=== PATIENT | female | born 1995 | race Caucasian/White ===

== ENCOUNTER 2017-04-23 13:10 | Outpatient (CLI) | payer OTHER, MEDICAID ==
--- NOTE | 2017-04-23 15:29 | ULT ---
ULTRASOUND OB COMPLETE STANDARD: HISTORY: Anatomy scan. COMPARISON: None. TECHNIQUE: Real-time, lopez scale, color Doppler, and spectral analysis of the pelvis was performed. A transabdominal approach was used. FINDINGS: Single viable intrauterine with average ultrasound age 17 weeks 3 days with estimated date of delivery 09/28/17. Estimated weight is 7 ounces, 27th percentile. The heart rate documented at 152 b.p.m. The placenta is posterior. Amniotic fluid is adequate . presentation is breech. ANATOMY: The head, cerebellum, cisterna magna, lateral ventricles, 4-chamber heart, stomach, kidneys, cord ins ertion, bladder, cervical, thoracic and lumbosacral spine are all number. Posterior fossa, nose, and lips are all normal. IMPRESSION: Single viable intrauterine with avid ultrasound age 17 weeks 2 days, estimated date of deli very 09/28/17. Estimated weight is 7 ounces, 27th percentile. Normal anatomy. POS: [facility]
== END 2017-04-23 13:11 | disposition home or self-care (01) ==
LOC: ULT 13:10
PROVIDERS: ATTEND Family Medicine
DX: Z34.82 Encounter for supervision of other normal pregnancy, second trimester (principal); Z3A.17 17 weeks gestation of pregnancy
CPT/HCPCS: 36415; 76805; 82105; 82677; 84702; 86336

== ENCOUNTER 2017-09-18 15:21 | Inpatient (IN) | payer OTHER ==
[2017-09-18 17:31] VITALS: BMI 33.8
--- NOTE | 2017-09-18 17:40 | PDOC.LDHP ---
Labor and Delivery H&P HPI: Patient of Dr Aliyah Lion here in L&D for contractions and "losing mucous plug" EGA: 38 weeks 6 days HPI: 22 yo at 38 weeks 6 days with regular contractions since this AM. Denies other issues. She is PCN allergic and record states VANCO for GBS. Review of Systems: Complete ROS performed and negative as per HPI Current gestational age (weeks): 38 (6 days) Due date: 10/01/17 Grav: 3 Para: 1 OB History Details: x 1 at term Current complications: none Abnormal US findings: No Current medications: pre-ángel vitamins Previous surgical history: none Allergies/Adverse Reactions: Allergies Allergy/AdvReac Type Severity Reaction Status Date / Time Penicillins Allergy Severe Anaphylaxis Verified 09/18/15 20:07 Social history: none - Physical Exam Vital signs reviewed and normal: yes General: NAD Heart: RRR Lungs: CTAB Abdomen: gravid (Efw about 7 Lbl) Extremeties: no edema FHT: category 1 [place] contractions every: every 5-10 - Vaginal Exam cm dilated: 4 Effacement: 90% Station: 0 - Assessment L&D Assessment: term patient in labor - Plan Plan: admit to L&D (We will notify Dr Aliyah lion of her patient's arrival.), GBS antibiotic prophylaxis (Vanco as per notes), informed consent obtained, anesthesia consult for pain management
[2017-09-18] MEDS ORDERED: Promethazine HCl 25 MG/ML VIAL IM PRN (17:42)
[2017-09-18] MEDS ORDERED: Butorphanol Tartrate 1 MG/ML VIAL SLOW IVP PRN (17:42)
[2017-09-18] MEDS ORDERED: NS / Oxytocin 40 units/1000ml 1,000 ML IV PRN (17:42)
[2017-09-18] MEDS ORDERED: Ibuprofen 800 MG TAB PO PRN (17:42)
[2017-09-18] MEDS ORDERED: Lidocaine 1% (PF) 30 ML VIAL SC PRN (17:42)
[2017-09-18] MEDS ORDERED: HYDROcodone/Acetaminophen 5/325 mg Tablet PO PRN ×2 (17:42)
[2017-09-18] MEDS ORDERED: Vancomycin HCl 1 GM in Premix Bag 1 BAG IVPB SCH (18:00)
[2017-09-18] MEDS: Lactated Ringer's 1,000 ML IV SCH (18:08)
--- NOTE | 2017-09-18 18:30 | PDOC.EVN ---
Event Note - Event Note Event Note: Addendum to H&P: record states HEP C positive. We will not perform AROM, and no FSE if possible. Will notify Pedi team. Order maternal viral load for information.
[2017-09-18 18:36] LABS: Hemoglobin 13.4 g/dL (12.0-16.0); Mean Corpuscular HGB CONC 35.5 g/dL (32.0-36.0); Mean Corpuscular Hemoglobin 32.7 pg (27.0-31.0); Mean Corpuscular Volume 92.3 fL (78.0-98.0); Mean Platelet Volume 7.9 fL (7.4-10.4); Platelet Count 257 thou/uL (130-400); RBC Distribution Width 12.2 % (11.5-14.5); Red Blood Cell (RBC) Count 4.09 mill/uL (4.20-5.40); White Blood Cell (WBC) Count 11.9 thou/uL (4.8-10.8)
[2017-09-18 19:11] LABS: HBSAg Index 0.22 S/CO (0-0.99); HIV (1/2) Antibody/Antigen Non-Reactive (NonReactive); HIV 1/2 INDEX 0.09 S/CO (<1.00); Hep B Surf Ag Non-Reactive S/CO (NonReactive)
[2017-09-18 19:16] LABS: Syphilis Antibody Nonreactive (Nonreactive); Syphilis Antibody Index 0.14 S/CO (<1.00 Non-Reactive)
[2017-09-19] MEDS ORDERED: Misoprostol 200 MCG TAB ONE (00:03)
[2017-09-19] MEDS ORDERED: Acetaminophen/Codeine 30-300mg Tablet PO PRN (03:00)
[2017-09-19] MEDS ORDERED: Lanolin Ointment 7 GM TUBE TOP PRN (03:00)
[2017-09-19] MEDS ORDERED: Preparation H Ointment 28 GM TUBE PR PRN (03:00)
[2017-09-19] MEDS ORDERED: Ondansetron HCl/PF 4 MG/2 ML Vial IVP PRN (03:00)
[2017-09-19] MEDS ORDERED: Milk Of Magnesia 30 ML UDCUP PO PRN (03:00)
[2017-09-19] MEDS ORDERED: Bisacodyl 10 MG SUPP PR PRN (03:00)
[2017-09-19] MEDS ORDERED: Benzocaine/Menthol 20-0.5% 60 ML CAN TOP PRN (03:00)
[2017-09-19] MEDS ORDERED: diphenhydrAMINE 25 MG CAP PO PRN (03:00)
[2017-09-19] MEDS ORDERED: NS / Oxytocin 40 units/1000ml 1,000 ML IV SCH (03:00)
[2017-09-19] MEDS: Ibuprofen 800 MG TAB PO SCH ×3 (05:15→22:16)
[2017-09-19] MEDS: Prenatal Vitamin 1 TAB PO SCH (09:35)
[2017-09-19] MEDS: Docusate Calcium (SURFAK) 240 MG CAP PO SCH ×2 (09:35→22:17)
[2017-09-19] MEDS: Ferrous Sulfate 325 MG TAB PO SCH ×2 (09:36→18:55)
[2017-09-19] MEDS: Lactated Ringer's 1,000 ML IV SCH (18:55)
[2017-09-20] MEDS: Ibuprofen 800 MG TAB PO SCH ×2 (05:41→17:09)
[2017-09-20] MEDS: Prenatal Vitamin 1 TAB PO SCH (08:50)
[2017-09-20] MEDS: Docusate Calcium (SURFAK) 240 MG CAP PO SCH (08:50)
[2017-09-20] MEDS: Ferrous Sulfate 325 MG TAB PO SCH (08:53)
[2017-09-20 09:01] VITALS: BP 114/77; TEMP 97.5
[2017-09-20] MEDS: HYDROcodone/Acetaminophen 5/325 mg Tablet PO PRN ×2 (09:02→17:11)
[2017-09-20] MEDS ORDERED: Sodium Chloride 0.9% 10 ML ONE (12:40)
[2017-09-22 14:18] LABS: Hep C PCR-Quant 251000 IU/mL (.)
== END 2017-09-20 18:34 | disposition home or self-care (01) | DRG 774 ==
LOC: L&D/OP 15:21 → L&D 18:55 → 3SW 09-19 02:54
PROVIDERS: ADMIT Family Medicine; ATTEND Obstetrics & Gynecology
PROC: 10E0XZZ Delivery of Products of Conception, External Approach (ICD-10-PCS; principal; 2017-09-18)
PROC: 10907ZC Drainage of Amniotic Fluid, Therapeutic from Products of Conception, Via Natural or Artificial Opening (ICD-10-PCS; 2017-09-18)
DX: O99.344 Other mental disorders complicating childbirth (principal); O98.42 Viral hepatitis complicating childbirth; O72.1 Other immediate postpartum hemorrhage; O77.0 Labor and delivery complicated by meconium in amniotic fluid; B19.20 Unspecified viral hepatitis C without hepatic coma; O99.824 Streptococcus B carrier state complicating childbirth; Z3A.38 38 weeks gestation of pregnancy; Z37.0 Single live birth; Z79.899 Other long term (current) drug therapy; Z88.0 Allergy status to penicillin
CPT/HCPCS: 36415; 85014; 85018; 85027; 86780; 86850; 86900; 86901; 87340; 87389; 87522; 99285; A4216; J2001; J3370

== ENCOUNTER 2018-10-07 13:56 | Emergency (ER) | payer OTHER, SELFPAY | END 2018-10-07 15:24 | disposition short-term general hospital (02) | LOC: ERS 13:56 | DX: F15.129 Other stimulant abuse with intoxication, unspecified (principal); F41.9 Anxiety disorder, unspecified; F90.9 Attention-deficit hyperactivity disorder, unspecified type; F98.8 Other specified behavioral and emotional disorders with onset usually occurring in childhood and adolescence; F42.9 Obsessive-compulsive disorder, unspecified; F17.210 Nicotine dependence, cigarettes, uncomplicated | CPT/HCPCS: 99284 ==

== ENCOUNTER 2019-01-19 10:20 | Outpatient (CLI) | payer OTHER ==
--- NOTE | 2019-01-19 11:11 | ULT ---
Exam: Pelvic ultrasound HISTORY: Pelvic pain COMPARISON: None TECHNIQUE: Multiple grayscale and color Doppler images were obtained in a transabdominal and transvag inal pelvic ultrasound. Spectral analysis of the Doppler waveforms of the ovaries were performed. FINDINGS: CERVIX: Grossly within normal limits where visualized. UTERUS: Normal in size without focal abnormality. ENDOMETRIAL STRIPE: 16 mm which is thickened. No fluid or fluid collection is seen in the endometrial canal. Small amount of free fluid is present. RIGHT OVARY: Normal flow, without focal mass. LEFT OVARY: Normal flow, without focal mass. IMPRESSION: 1. Thickened endometrium which measures 16 mm. No fluid or fluid collection is seen in the endometria l canal. 2. Small amount of free fluid in the pelvis.
== END 2019-01-19 10:21 | disposition home or self-care (01) ==
LOC: SCSULT 10:20
PROVIDERS: ATTEND Family Medicine
DX: N91.2 Amenorrhea, unspecified (principal); R93.89 Abnormal findings on diagnostic imaging of other specified body structures
CPT/HCPCS: 76856

== ENCOUNTER 2019-01-25 08:27 | Outpatient (CLI) | payer OTHER ==
--- NOTE | 2019-01-25 09:26 | MRI ---
MRI BRAIN WITHOUT CONTRAST: HISTORY: Tremor, headache, opiate withdrawal FINDINGS: No restricted diffusion is seen.The ventricular size is appropriate and the basilar cisterns are virk nt. No evidence of acute infarct, hemorrhage, midline shift or abnormal extra-axial fluid collections is seen. The visualized paranasal sinuses and mastoid air cells are well-aerated. No tons illar herniation is seen. IMPRESSION: No evidence of acute intracranial process.
== END 2019-01-25 08:28 | disposition home or self-care (01) ==
LOC: TBSIIMAG 08:27
PROVIDERS: ATTEND Family Medicine
DX: F11.23 Opioid dependence with withdrawal (principal); R25.1 Tremor, unspecified; R51 Headache
CPT/HCPCS: 70551

== ENCOUNTER 2019-05-13 19:38 | Emergency (ER) | payer OTHER ==
[2019-05-13] MEDS ORDERED: Lorazepam 2 MG/ML VIAL ONE (20:08)
[2019-05-13] MEDS ORDERED: Haloperidol Lactate 5 MG/ML VIAL ONE (20:09)
[2019-05-13 20:32] LABS: BHCG - Serum Negative (NEGATIVE)
[2019-05-13 20:33] LABS: Pregs Control Background? CLEAR/WHITE (CLR/WHITE); Pregs Control Bar Appear? YES (CONTROL BAR)
--- NOTE | 2019-05-13 20:38 | RAD ---
PORTABLE CHEST: 05/13/19 HISTORY: Cough and fever. The lung richardson appear clear. No infiltrate identified. Heart and mediastinum unremarkable. IMPRESSION: No acute findings. POS: [facility]
[2019-05-13 20:40] LABS: ALT (SGPT) 13 U/L (8-55); AST (SGOT) 15 U/L (5-34); Alkaline Phosphatase 87 U/L (40-110); Anion Gap 12 mmol/L (10-20); BUN (Urea Nitrogen) 13 mg/dL (7.0-18.7); Bilirubin, Total 0.3 mg/dL (0.2-1.2); CK (CPK) 153 U/L (29-168); Calc. Creatinine Clearance 0 mL/min (70-130); Calcium 9.3 mg/dL (7.8-10.44); Carbon Dioxide 27 mmol/L (22-29); Chloride 104 mmol/L (98-107); Estimated GFR-MDRD 72; Globulin 3.3 g/dL (2.4-3.5); Glucose 104 mg/dL (70-105); Potassium 3.8 mmol/L (3.5-5.1); Protein, Total 7.3 g/dL (6.0-8.3); Sodium 139 mmol/L (136-145)
[2019-05-13 20:41] LABS: Acetaminophen Less than 6.0 mcg/mL (10.0-30.0); Alcohol Less than 10 mg/dL (Less than 10); Salicylate Less than 8.0 mg/dL (15.0-30.0)
[2019-05-13 20:57] LABS: #Basophils 0.1 thou/uL (0.0-0.2); #Eosinphils 0.1 thou/uL (0.0-0.7); #Lymphocytes 3.7 thou/uL (1.20-3.40); #Monocytes 0.7 thou/uL (0.11-0.59); #Neutrophils 7.3 thou/uL (1.40-6.50); %Basophils 0.7 % (0.0-1.0); %Lymphocytes 31.2 % (21.0-51.0); %Monocytes 5.7 % (0.0-10.0); %Neutrophils 61.5 % (42.0-75.0); Hemoglobin 11.2 g/dL (12.0-16.0); Mean Corpuscular HGB CONC 33.4 g/dL (32.0-36.0); Mean Corpuscular Volume 89.8 fL (78.0-98.0); Mean Platelet Volume 6.6 fL (7.4-10.4); Platelet Count 406 thou/uL (130-400); Red Blood Cell (RBC) Count 3.74 mill/uL (4.20-5.40); White Blood Cell (WBC) Count 11.9 thou/uL (4.8-10.8)
[2019-05-13 21:59] LABS: Bilirubin Negative (Negative); Blood, Urine 2+ (Negative); Clarity Clear (Clear); Glucose, Urine (Dipstick) Normal (Negative); Leukocyte Negative Leu/uL (Negative); Nitrite Negative (Negative); Protein, Urine (Dipstick) 20 mg/dL (Neg-Trace); RBC/HPF 21-50 HPF (0-3); Squamous Epithelial 0-3 HPF (0-3); Urobilinogen Normal mg/dL (Less than 2)
[2019-05-13 22:00] LABS: Bacteria/HPF 1+ HPF (None Seen)
[2019-05-13 22:26] LABS: Amphetamine Detected (NotDetected); Cocaine Metabolite Screen Not Detected (NotDetected); Medtox Reader # READER 1; Methamphetamine Detected (NotDetected); Opiate Screen Detected (NotDetected); Phencyclidine (PCP) Not Detected (NotDetected); THC/Cannabinoid Screen Not Detected (NotDetected)
[2019-05-13 22:27] LABS: Barbiturates Screen Not Detected (NotDetected); Benzodiazepine Screen Detected (NotDetected); Medtox Control Line Valid? VALID (VALID); Methadone Not Detected (NotDetected); Oxycodone Screen Not Detected (NotDetected); Tricyclic Screen Not Detected (NotDetected)
== END 2019-05-14 06:40 | disposition home or self-care (01) ==
LOC: ERS 19:38
DX: F15.10 Other stimulant abuse, uncomplicated (principal); F11.10 Opioid abuse, uncomplicated; F41.9 Anxiety disorder, unspecified; F90.9 Attention-deficit hyperactivity disorder, unspecified type; F42.9 Obsessive-compulsive disorder, unspecified; F17.210 Nicotine dependence, cigarettes, uncomplicated
CPT/HCPCS: 36415; 71045; 80053; 80306; 80307; 81003; 81015; 82550; 83605; 84703; 85025; 87040; 87804; 93005; 96361; 96374; 96375; A4353; J1630; J2060

== ENCOUNTER 2019-06-27 15:06 | Emergency (ER) | payer OTHER | END 2019-06-27 15:46 | LOC: ERS 15:06 → EDSTATUS 15:07 → ERS 15:46 | DX: Z02.89 Encounter for other administrative examinations (principal); R73.03 Prediabetes; F41.9 Anxiety disorder, unspecified; F90.9 Attention-deficit hyperactivity disorder, unspecified type; F98.8 Other specified behavioral and emotional disorders with onset usually occurring in childhood and adolescence; F42.9 Obsessive-compulsive disorder, unspecified; F17.210 Nicotine dependence, cigarettes, uncomplicated | CPT/HCPCS: 36415; 99282 ==